=== PATIENT | male | born 1995 | race Caucasian/White ===

== ENCOUNTER 2018-04-30 16:45 | Emergency (ER) | payer MEDICAID ==
[~2018-04-30] VITALS: Ht 177.8 cm; Wt 83.5 kg
[2018-04-30 16:53] VITALS: BP_SYST 119
--- NOTE | 2018-04-30 16:56 | NUR ---
Patient to ER bed 03 to gown for evaluation. Side rails up.
--- NOTE | 2018-04-30 17:11 | NUR ---
Dr. Teran at bedside for evaluation
--- NOTE | 2018-04-30 17:12 | NUR ---
Pt presents with rash to both hands between fingers, in AC and stomach for over a month +itching.
--- NOTE | 2018-04-30 17:50 | NUR ---
Patient given written and verbal discharge instructions and verbalizes understanding. ER MD discussed with patient the results and treatment provided. Patient in stable condition. ID arm band removed.. Rx of PERMERTHRIN, ATARAX given. Patient educated on pain management and to follow up with PMD. Pain Scale 0/10. Opportunity for questions provided and answered.
[2018-04-30 18:19] VITALS: BP_SYST 119
== END 2018-04-30 18:19 | disposition home or self-care (01) ==
LOC: SED 16:45
DX: B86 Scabies (principal); J45.909 Unspecified asthma, uncomplicated
CPT/HCPCS: 99283

== ENCOUNTER 2023-05-03 23:23 | Emergency (ER) | payer MEDICAID, OTHER ==
[~2023-05-03] VITALS: Ht 177.8 cm; Wt 86.2 kg
[2023-05-03 23:35] VITALS: BP_SYST 137
--- NOTE | 2023-05-03 23:35 | NUR ---
Patient triaged and placed in waiting room. VSS and patient appears in no acute distress at this time. Accompanied by self, awaiting available bed, and MD notified of need for MSE.
--- NOTE | 2023-05-04 00:45 | NUR ---
Dr. Rico with patient for [facility] [place].
--- NOTE | 2023-05-04 00:53 | NUR ---
Patient to ER bed 7 to gown for evaluation. Side rails up. Report given to goldie escalante.
[2023-05-04] MEDS ORDERED: LIDOCAINE PATCH 5% 1 EA TP ONE (01:00)
[2023-05-04] MEDS ORDERED: IBUPROFEN 600 MG TABLET PO ONE (01:00)
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
[2023-05-04] MEDS ORDERED: IBUP-1970 PO (02:28)
[2023-05-04] MEDS ORDERED: CYCL10TA24 PO (02:28)
[2023-05-04] MEDS ORDERED: ACET-2634 PO (02:28)
[2023-05-04 02:38] VITALS: BP_SYST 137
--- NOTE | 2023-05-04 02:38 | NUR ---
Patient given written and verbal discharge instructions and verbalizes understanding. ER Dr. Rico discussed with patient the results and treatment provided. Patient in stable condition. ID arm band removed. Rx of tylenol, flexeril, ibuprofen given. Patient educated on pain management and to follow up with PMD. Pain Scale 0. Opportunity for questions provided and answered. Medication side effect fact sheet provided.
== END 2023-05-04 02:38 | disposition home or self-care (01) ==
LOC: SED 23:23
DX: S43.401A Unspecified sprain of right shoulder joint, initial encounter (principal); S80.01XA Contusion of right knee, initial encounter; J45.909 Unspecified asthma, uncomplicated; Z79.899 Other long term (current) drug therapy; V89.2XXA Person injured in unspecified motor-vehicle accident, traffic, initial encounter; Y93.89 Activity, other specified; Y92.89 Other specified places as the place of occurrence of the external cause; Y99.8 Other external cause status
CPT/HCPCS: 73030; 73560-TC; 99284

== ENCOUNTER 2024-05-26 10:29 | Emergency (ER) | payer SELFPAY ==
[~2024-05-26] VITALS: Ht 177.8 cm; Wt 83.9 kg
[~2024-05-26 10:29] MED LIST: ACET-2634 PO; CYCL10TA24 PO; IBUP-1970 PO
[2024-05-26 10:38] VITALS: BP_SYST 126; PULSE 77; RESP 17; TEMP 97.9; O2SAT 96
[2024-05-26] MEDS: KETOROLAC TROMETHAMINE 60 MG/2 ML VIAL IM ONE (11:01)
[2024-05-26] MEDS ORDERED: IBUP-1971 PO (11:25)
[2024-05-26] MEDS ORDERED: HYDR-3917 PO (11:25)
[2024-05-26 11:37] VITALS: BP_SYST 126; PULSE 77; RESP 17; TEMP 97.9; O2SAT 96
== END 2024-05-26 11:40 | disposition home or self-care (01) ==
LOC: SED 10:29
DX: S43.102A Unspecified dislocation of left acromioclavicular joint, initial encounter (principal); J45.909 Unspecified asthma, uncomplicated; Z79.899 Other long term (current) drug therapy; Z79.2 Long term (current) use of antibiotics; V29.881A Electric (assisted) bicycle rider (driver) (passenger) injured in other specified transport accidents, initial encounter; Y93.89 Activity, other specified; Y92.89 Other specified places as the place of occurrence of the external cause; Y99.8 Other external cause status
CPT/HCPCS: 99283; 73030; 96372; J1885

== ENCOUNTER 2024-06-25 17:34 | Emergency (ER) | payer MEDICAID ==
[~2024-06-25] VITALS: Ht 177.8 cm; Wt 79.4 kg
[~2024-06-25 17:34] MED LIST changes: +HYDR-3917 PO; +IBUP-1971 PO
[2024-06-25 17:46] VITALS: BP_SYST 134; PULSE 97; RESP 20; TEMP 98.3; O2SAT 98
[2024-06-25] MEDS ORDERED: AMOX-423 PO (18:49)
[2024-06-25] MEDS: IBUPROFEN 600 MG TABLET PO ONE (19:12)
[2024-06-25] MEDS: cefTRIAXone 1 GM VIAL IM ONE (19:18)
[2024-06-25] MEDS: DIPHTH,PERTUSS(ACELL),TET VAC 0.5 ML VIAL (Tdap) I.M. ONE (19:23)
[2024-06-25 19:40] VITALS: BP_SYST 134; PULSE 97; RESP 20; TEMP 98.3; O2SAT 98
== END 2024-06-25 19:40 | disposition home or self-care (01) ==
LOC: SED 17:34
DX: L03.114 Cellulitis of left upper limb (principal); J45.909 Unspecified asthma, uncomplicated
CPT/HCPCS: 99284; 90715; 96372; 90471; J0696